=== PATIENT | female | born 1980 | race Caucasian/White ===

== ENCOUNTER 2019-09-27 16:36 | Emergency (ER) | payer MEDICAID ==
[~2019-09-27] VITALS: Ht 162.6 cm; Wt 80.0 kg
[2019-09-27 17:42] LABS: CLARITY,URINE CLOUDY (Clear); COLOR,URINE YELLOW (Yellow); GLUCOSE, URINE NEGATIVE (Neg); KETONES,URINE NEGATIVE (Neg); LEUKOCYTE ESTERASE ,URINE MODERATE (Neg); NITRITES, URINE POSITIVE (Neg); OCCULT BLOOD,URINE MODERATE (Neg); PH,URINE 5.5 (4.8-8.0); PROTEIN,URINE 100 mg/dl (Neg); URINE HCG NEGATIVE (NEG); UROBILINOGEN,URINE 0.2 E.U/dL (0.2-1.0)
[2019-09-27 17:45] LABS: UA COLLECTION TYPE CLN CATCH MIDSTREAM
[2019-09-27 17:49] LABS: BACTERIA,URINE 3+ /HPF (Neg); MUCUS STRANDS MODERATE /LPF (Neg); SQUAMOUS EPITHELIAL CELL,UR FEW /LPF (FEW); TRANSITIONAL EPI CELLS,URINE FEW /HPF; WBC,URINE TNTC /HPF (0-4)
[2019-09-27] MEDS ORDERED: CEPH500C5 PO (18:18)
[2019-09-27 18:29] VITALS: BP 121/73
== END 2019-09-27 18:28 | disposition home or self-care (01) ==
LOC: ER 16:37
DX: N39.0 Urinary tract infection, site not specified (principal)
CPT/HCPCS: 81001; 81025; 87077; 87088; 87186; 99283

== ENCOUNTER 2023-04-19 14:48 | Emergency (ER) | payer MEDICAID ==
[~2023-04-19] VITALS: Ht 165.1 cm; Wt 81.8 kg
[2023-04-19 15:00] VITALS: BP 100/67; PULSE 95; RESP 18; TEMP 97.7; O2SAT 99
[2023-04-19 17:06] LABS: CLARITY,URINE SLIGHTLY CLOUDY (Clear); COLOR,URINE YELLOW (Yellow); GLUCOSE, URINE NEGATIVE (Neg); KETONES,URINE NEGATIVE (Neg); LEUKOCYTE ESTERASE ,URINE NEGATIVE (Neg); NITRITES, URINE NEGATIVE (Neg); OCCULT BLOOD,URINE MODERATE (Neg); PH,URINE 6.5 (4.8-8.0); PROTEIN,URINE NEGATIVE (Neg); UROBILINOGEN,URINE 0.2 E.U/dL (0.2-1.0)
[2023-04-19 17:11] LABS: URINE HCG NEGATIVE (NEG)
[2023-04-19 17:34] LABS: UA COLLECTION TYPE CLN CATCH MIDSTREAM
[2023-04-19 17:38] LABS: BACTERIA,URINE 1+ /HPF (Neg); MUCUS STRANDS MODERATE /LPF (Neg); RBC,URINE 0-2 /HPF (0-2); SQUAMOUS EPITHELIAL CELL,UR MODERATE /LPF (FEW); WBC,URINE 0-4 /HPF (0-4)
== END 2023-04-19 18:52 | disposition home or self-care (01) ==
LOC: ER 14:49
DX: S50.12XA Contusion of left forearm, initial encounter (principal); N93.9 Abnormal uterine and vaginal bleeding, unspecified; R31.9 Hematuria, unspecified; F17.200 Nicotine dependence, unspecified, uncomplicated; W19.XXXA Unspecified fall, initial encounter; Y93.89 Activity, other specified; Y92.89 Other specified places as the place of occurrence of the external cause; Y99.8 Other external cause status
CPT/HCPCS: 81001; 81025; 99283

== ENCOUNTER 2023-07-02 23:47 | Emergency (ER) | payer MEDICAID ==
[~2023-07-02] VITALS: Ht 165.1 cm; Wt 83.6 kg
[2023-07-02 23:56] VITALS: BP 109/62; PULSE 89; RESP 16; TEMP 97.7; O2SAT 99
== END 2023-07-03 02:25 | disposition home or self-care (01) ==
LOC: ER 23:48
DX: T19.2XXA Foreign body in vulva and vagina, initial encounter (principal); Z87.448 Personal history of other diseases of urinary system; X58.XXXA Exposure to other specified factors, initial encounter; Y93.89 Activity, other specified; Y92.89 Other specified places as the place of occurrence of the external cause; Y99.8 Other external cause status
CPT/HCPCS: 99284

== ENCOUNTER 2023-12-09 00:57 | Emergency (ER) | payer MEDICAID, OTHER ==
[~2023-12-09] VITALS: Ht 165.1 cm; Wt 85.0 kg
[2023-12-09 01:05] VITALS: TEMP 97.8
[2023-12-09 01:51] LABS: BILIRUBIN,URINE NEGATIVE (Neg); CLARITY,URINE CLOUDY (Clear); COLOR,URINE YELLOW (Yellow); GLUCOSE, URINE NEGATIVE (Neg); KETONES,URINE NEGATIVE (Neg); LEUKOCYTE ESTERASE ,URINE MODERATE (Neg); NITRITES, URINE POSITIVE (Neg); OCCULT BLOOD,URINE MODERATE (Neg); PH,URINE 5.5 (4.8-8.0); PROTEIN,URINE TRACE mg/dl (Neg); UROBILINOGEN,URINE 0.2 E.U/dL (0.2-1.0)
[2023-12-09 02:15] LABS: UA COLLECTION TYPE CLN CATCH MIDSTREAM
[2023-12-09 02:18] LABS: BACTERIA,URINE 2+ /HPF (Neg); MUCUS STRANDS NONE SEEN /LPF (Neg); SQUAMOUS EPITHELIAL CELL,UR MANY /LPF (FEW); WBC,URINE TNTC /HPF (0-4)
[2023-12-09 02:19] LABS: WBC CLUMPS,URINE MODERATE /HPF (NEGATIVE)
[2023-12-09 02:22] LABS: URINE AMPHETAMINE SCREEN POSITIVE (Neg); URINE BARBITUATE SCREEN NEGATIVE (Neg); URINE BENZODIAZEPINES SCREEN NEGATIVE (Neg); URINE CANNABINOID SCREEN POSITIVE (Neg); URINE COCAINE SCREEN NEGATIVE (Neg); URINE METHADONE SCREEN NEGATIVE (Neg); URINE OPIATE SCREEN NEGATIVE (Neg); URINE PHENCYCLIDINE SCREEN NEGATIVE (Neg)
[2023-12-09] MEDS ORDERED: PHEN-716 PO (02:22)
[2023-12-09] MEDS ORDERED: CEPH-585 PO (02:22)
[2023-12-09] MEDS: phenazopyridine 100mg tablet PO ONE (02:40)
[2023-12-09] MEDS: cephalexin 250mg capsule PO ONE (02:41)
[2023-12-09 02:43] VITALS: BP 107/70; PULSE 97; RESP 16; O2SAT 99
== END 2023-12-09 02:45 | disposition home or self-care (01) ==
LOC: ER 00:58
DX: N39.0 Urinary tract infection, site not specified (principal); F10.90 Alcohol use, unspecified, uncomplicated; Z79.2 Long term (current) use of antibiotics; Z79.899 Other long term (current) drug therapy
CPT/HCPCS: 80305; 81001; 99283